=== PATIENT | female | born 1995 | race Caucasian/White ===

== ENCOUNTER 2017-04-08 13:03 | Emergency (ER) | payer BC ==
[2017-04-08 15:31] LABS: HEMOGLOBIN 13.9 gm/dl (12.3-15.3); RED BLOOD COUNT 4.63 M/UL (4.00-5.10); WHITE BLOOD COUNT 16.8 K/UL (4.5-11.0)
[2017-04-08 15:52] LABS: BUN/CREATININE RATIO 15 (0-10)
== END 2017-04-08 18:50 | disposition home or self-care (01) ==
LOC: ER1 13:03
PROVIDERS: Family Medicine
DX: N13.2 Hydronephrosis with renal and ureteral calculous obstruction (principal); D72.829 Elevated white blood cell count, unspecified; Z87.42 Personal history of other diseases of the female genital tract; Z88.0 Allergy status to penicillin
CPT/HCPCS: 36415; 80053; 81001; 83690; 84703; 85025; 96361; 96374; 96375; 99284; J2270; J2405; J7040; J7050; Q9962